=== PATIENT | female | born 1975 | race Caucasian/White ===

== ENCOUNTER → 2018-12-21 | Outpatient (CLI) | payer BC ==
[2018-12-21 10:49] LABS: Basophils % (A) 1 %; Eosinophils # (A) 0.1 k/uL (0-0.7); Eosinophils % (A) 3 %; HCT 38.3 % (34.0-46.0); HGB 12.5 gm/dL (11.4-16.0); Lymphocytes # (A) 1.4 k/uL (1.0-4.8); Lymphocytes % (A) 33 %; MCH 29.8 pg (25.0-35.0); MCHC 32.5 g/dL (31.0-37.0); MCV 91.7 fL (80.0-100.0); Mean Platelet Volume 7.3; Monocytes # (A) 0.2 k/uL (0-1.0); Monocytes % (A) 5 %; Neutrophils # (A) 2.3 k/uL (1.3-7.7); Neutrophils % (A) 56 %; Platelet Count 264 k/uL (150-450); RBC 4.18 m/uL (3.80-5.40); RDW 11.9 % (11.5-15.5); WBC 4.1 k/uL (3.8-10.6)
[2018-12-21 16:29] LABS: Anion Gap 6.9 mmol/L (4.00-12.00); Carbon Dioxide 27.1 mmol/L (21.6-31.8); Potassium 4.2 mmol/L (3.5-5.5)
[2018-12-21 16:38] LABS: Iron Saturation 24.92 (12.00-45.00)
== END | disposition home or self-care (01) ==
LOC: LABWHC1 10:25
PROVIDERS: ATTEND Otolaryngology
DX: D64.9 Anemia, unspecified (principal); I95.9 Hypotension, unspecified
CPT/HCPCS: 36415; 80051; 82728; 83540; 83550; 84466; 85025; 86038

== ENCOUNTER 2019-07-17 10:55 | Emergency (ER) | payer BC ==
[2019-07-17 11:05] VITALS: BP 127/69; PULSE 105; RESP 18; TEMP 97.7
[2019-07-17 12:16] LABS: Calcium 10.3 mg/dL (8.4-10.2); Total Bilirubin 0.5 mg/dL (0.2-1.3); Total Protein 8.4 g/dL (6.3-8.2)
[2019-07-17 12:20] LABS: Basophils % (A) 0 %; Eosinophils % (A) 0 %; HCT 43.8 % (34.0-46.0); Lymphocytes # (A) 2.5 k/uL (1.0-4.8); Lymphocytes % (A) 27 %; MCHC 34.2 g/dL (31.0-37.0); MCV 90.6 fL (80.0-100.0); Mean Platelet Volume 6.4; Monocytes # (A) 0.3 k/uL (0-1.0); Monocytes % (A) 3 %; Neutrophils # (A) 6.1 k/uL (1.3-7.7); Neutrophils % (A) 67 %; Platelet Count 377 k/uL (150-450); RBC 4.83 m/uL (3.80-5.40); RDW 11.8 % (11.5-15.5); WBC 9.1 k/uL (3.8-10.6)
--- NOTE | 2019-07-17 12:57 | ED ---
General Adult HPI - General Chief complaint: Recheck/Abnormal Lab/Rx Stated complaint: Hands/feet numb/nausea Source: patient Mode of arrival: ambulatory Limitations: no limitations - History of Present Illness Initial comments: The patient is a 43-year-old female who presents emergency room with reported nausea, vomiting and palpitations. The patient reports that she's had the same symptoms for the past 2 weeks. She followed up with her primary care physician in office who noted that her thyroid studies are off the chart. She is on Synthroid. He did decrease her dose however did not take her off of it. He did order a MRI of her pituitary as he was concerned for adenoma. The patient did present to the MR department today to have it done. Preop was not finished and therefore they could not complete the study. The patient presented to the emergency department to see if something more could be done. She is believe that her symptoms are secondary to anxiety. She denies any chest pain or shortness of breath. No abdominal pain. Denies vomiting. The patient is somewhat tenuous in the room. Denies any other recent medication changes. There are no other alleviating, precipitating or modifying factors - Related Data Home Medications Medication Instructions Recorded Confirmed ALPRAZolam [Xanax] 0.25 mg PO BID PRN 07/17/19 07/17/19 FLUoxetine HCL [PROzac] 10 mg PO DAILY 07/17/19 07/17/19 FLUoxetine HCL [PROzac] 20 mg PO DAILY 07/17/19 07/17/19 Ibuprofen [Motrin Ib] 200 - 400 mg PO Q6H PRN 07/17/19 07/17/19 Levothyroxine Sodium [Synthroid] 100 mcg PO DAILY 07/17/19 07/17/19 Propranolol [Inderal] 20 mg PO TID PRN 07/17/19 07/17/19 Allergies Allergy/AdvReac Type Severity Reaction Status Date / Time No Known Allergies Allergy Verified 07/17/19 13:02 Review of Systems ROS Statement: Those systems with pertinent positive or pertinent negative responses have been documented in the HPI. ROS Other: All systems not noted in ROS Statement are negative. Past Medical History Additional Past Medical History / Comment(s): PE @ 20 History of Any Multi-Drug Resistant Organisms: None Reported Past Surgical History: Section Past Psychological History: Anxiety Smoking Status: Never smoker Past Alcohol Use History: Occasional Past Drug Use History: None Reported General Exam Limitations: no limitations Course Vital Signs 07/17/19 11:02 Temperature 97.7 F Pulse Rate 105 H Respiratory 18 Rate Blood Pressure 127/69 O2 Sat by Pulse 98 Oximetry EKG Findings - EKG Comments: EKG Findings:: EKG demonstrates normal sinus rhythm with a ventricular rate of 88. ID interval 136. QRS 78. QTC of 457. There are no acute ST segment elevations or depressions concerning for any ischemic change. No signs of mina Parkinson White or Brugada Medical Decision Making - Medical Decision Making Upon arrival the patient is placed into room 16. There are history of physical exam was performed. I did recommend repeating the patient's laboratory studies. I did call the MRI department he stated the patient study could be done at 1:15. I did review the patient's blood work. CBC is unremarkable. CMP shows a glucose of 125. TSH is 3.7. Urine hCG is negative. I did discuss results wi th the patient. The patient does agree to be discharged and go over to the MRI department to have her study completed at 1:15. I informed her she has any new or worsening symptoms she should return to the emergency room. Patient was in agreement with the treatment plan she is discharged in stable condition - Lab Data Result diagrams: 07/17/19 11:25 07/17/19 11:25 Lab Results 07/17/19 07/17/19 07/17/19 Range/Units 11:25 11:25 12:03 WBC 9.1 (3.8-10.6) k/uL RBC 4.83 (3.80-5.40) m/uL Hgb 15.0 (11.4-16.0) gm/dL Hct 43.8 (34.0-46.0) % MCV 90.6 (80.0-100.0) fL MCH 31.0 (25.0-35.0) pg MCHC 34.2 (31.0-37.0) g/dL RDW 11.8 (11.5-15.5) % Plt Count 377 (150-450) k/uL Neutrophils % 67 % Lymphocytes % 27 % Monocytes % 3 % Eosinophils % 0 % Basophils % 0 % Neutrophils # 6.1 (1.3-7.7) k/uL Lymphocytes # 2.5 (1.0-4.8) k/uL Monocytes # 0.3 (0-1.0) k/uL Eosinophils # 0.0 (0-0.7) k/uL Basophils # 0.0 (0-0.2) k/uL Sodium 140 (137-145) mmol/L Potassium 4.0 (3.5-5.1) mmol/L Chloride 99 (98-107) mmol/L Carbon Dioxide 31 H (22-30) mmol/L Anion Gap 10 mmol/L BUN 7 (7-17) mg/dL Creatinine 1.05 H (0.52-1.04) mg/dL Est GFR (CKD-EPI)AfAm 75 (>60 ml/min/1.73 sqM) Est GFR (CKD-EPI)NonAf 65 (>60 ml/min/1.73 sqM) Glucose 125 H (74-99) mg/dL Calcium 10.3 H (8.4-10.2) mg/dL Total Bilirubin 0.5 (0.2-1.3) mg/dL AST 32 (14-36) U/L ALT 35 (9-52) U/L Alkaline Phosphatase 55 (38-126) U/L Total Protein 8.4 H (6.3-8.2) g/dL Albumin 5.0 (3.5-5.0) g/dL TSH 3.780 (0.465-4.680) mIU/L Urine HCG, Qual Not Detected (Not Detectd) Disposition Clinical Impression: Nausea Disposition: HOME SELF-CARE Condition: Stable Instructions (If sedation given, give patient instructions): Heart Palpitations (ED) Additional Instructions: Please proceed to patient check in for your MRI which is scheduled for 1:15. Is patient prescribed a controlled substance at d/c from ED?: No Referrals: Eugenio Carranza MD [Primary Care Provider] - 1-2 days Time of Disposition: 12:57
== END 2019-07-17 13:03 | disposition home or self-care (01) ==
LOC: EC 10:55
DX: R11.2 Nausea with vomiting, unspecified (principal); R20.0 Anesthesia of skin; R00.2 Palpitations; F41.9 Anxiety disorder, unspecified; Z32.02 Encounter for pregnancy test, result negative; Z79.899 Other long term (current) drug therapy; Z79.890 Hormone replacement therapy
CPT/HCPCS: 36415; 80053; 81025; 84443; 85025; 93005; 99284

== ENCOUNTER → 2019-07-17 | Outpatient (CLI) | payer BC ==
--- NOTE | 2019-07-17 16:24 | MR ---
EXAMINATION TYPE: MR pituitary wo/w con DATE OF EXAM: 07/17/2019 COMPARISON: None HISTORY: thyrotoxicosis CONTRAST: Performed utilizing 5 mL intravenous Gadavist gadolinium contrast. TECHNIQUE: Multiplanar, multiecho imaging on a 3.0 Lydia magnet is performed through the 2 enteric. Pre and postcontrast imaging is performed. FINDINGS: The craniovertebral junction is normal. Pituitary stalk is midline. Pre and postcontrast of the pituitary is homogenous. There appears to be homogenous enhancement. No m icroadenomas are evident. No macroadenomas are evident. Optic chiasm is normal. Normal vascular flow voids are within the visualized intracranial cerebral vasculature. Paranasal sin uses are clear. Portion of the brain included within the field of view is unremarkable. IMPRESSIONS: 1. Normal pituitary
== END | disposition home or self-care (01) ==
LOC: RADMRIMAIN 13:41
PROVIDERS: ATTEND Family Medicine
DX: E05.90 Thyrotoxicosis, unspecified without thyrotoxic crisis or storm (principal)
CPT/HCPCS: 70553; A9585